=== PATIENT | female | born 1970 | race Caucasian/White ===

== ENCOUNTER → 2021-02-18 | Outpatient (CLI) | payer OTHER ==
[~2021-02-18] MED LIST: AUGMENTIN 875-1 EACH PO; BENADRYL 25MG C25 MG PO; CLEOCIN HCL300 MG PO; LEVAQUIN500 MG PO; PEPCID AC20 MG PO; PHENERGAN 25 MG25 M1 PO
== END ==
LOC: EXRD 13:35
DX: E04.1 Nontoxic single thyroid nodule (principal); E04.2 Nontoxic multinodular goiter
CPT/HCPCS: 76536

== ENCOUNTER 2021-06-09 12:14 | Emergency (ER) | payer OTHER ==
[~2021-06-09] VITALS: Ht 172.7 cm; Wt 74.8 kg
== END 2021-06-09 16:19 | disposition home or self-care (01) ==
LOC: ER1 12:14
DX: U07.1 COVID-19 (principal); Z23 Encounter for immunization; E78.5 Hyperlipidemia, unspecified; Z87.19 Personal history of other diseases of the digestive system; Z90.49 Acquired absence of other specified parts of digestive tract
CPT/HCPCS: 71045; 87081; 87880; 99285; M0245

== ENCOUNTER → 2021-07-20 | Outpatient (CLI) | payer OTHER | LOC: RAD 14:00 | DX: M25.562 Pain in left knee (principal); M25.561 Pain in right knee; M25.572 Pain in left ankle and joints of left foot; M25.571 Pain in right ankle and joints of right foot; R05.9 Cough, unspecified | CPT/HCPCS: 71046; 73562; 73610; 73630 ==

== ENCOUNTER → 2021-08-05 | Outpatient (CLI) | payer OTHER | LOC: KOH-I 08:04 | DX: R10.9 Unspecified abdominal pain (principal); K76.0 Fatty (change of) liver, not elsewhere classified | CPT/HCPCS: 76700 ==

== ENCOUNTER → 2021-09-04 | Outpatient (CLI) | payer OTHER | LOC: KOH-I 08-26 13:00 | DX: S83.512A Sprain of anterior cruciate ligament of left knee, initial encounter (principal); S83.522A Sprain of posterior cruciate ligament of left knee, initial encounter; M17.12 Unilateral primary osteoarthritis, left knee; M22.42 Chondromalacia patellae, left knee; W19.XXXA Unspecified fall, initial encounter | CPT/HCPCS: 73721 ==

== ENCOUNTER → 2021-12-30 | Outpatient (CLI) | payer OTHER | LOC: RAD 15:28 | DX: R15.9 Full incontinence of feces (principal) | CPT/HCPCS: 74018 ==

== ENCOUNTER → 2022-01-08 | Outpatient (CLI) | payer OTHER | LOC: EMI 10:31 | DX: R15.9 Full incontinence of feces (principal); M43.16 Spondylolisthesis, lumbar region; M47.816 Spondylosis without myelopathy or radiculopathy, lumbar region | CPT/HCPCS: 72148 ==

== ENCOUNTER → 2022-01-25 | Outpatient (CLI) | payer OTHER | LOC: RAD 12:36 | DX: R06.02 Shortness of breath (principal) | CPT/HCPCS: 71046 ==